=== PATIENT | male | born 1985 | race African-American/Black ===

== ENCOUNTER 2016-08-20 02:41 | Emergency (ER) | payer SELFPAY ==
[~2016-08-20] VITALS: Ht 182.9 cm; Wt 118.8 kg
[~2016-08-20 02:41] MED LIST: ALBUTEROL SULF8.5 GM IH; CIPRO500 MG PO; METHADONE1 MG/1 ML PO; PREDNISONE20 MG PO; PREDNISONE50 MG PO; SEROQUEL100 MG PO; SEROQUEL12.5 MG PO; VENTOLIN HFA18 GM IH; unable to obtain
[2016-08-20 03:26] VITALS: BP 142/83
== END 2016-08-20 03:45 | disposition home or self-care (01) ==
LOC: EME 02:41
DX: S01.511A Laceration without foreign body of lip, initial encounter (principal); F10.129 Alcohol abuse with intoxication, unspecified; Y04.8XXA Assault by other bodily force, initial encounter
CPT/HCPCS: 99281; 99283